=== PATIENT | female | born 1995 | race Caucasian/White ===

== ENCOUNTER 2017-05-29 18:23 | Emergency (ER) | payer BC ==
--- NOTE | 2017-05-29 18:43 | UC ---
Complaint Female HPI - HPI Summary HPI Summary: 22 YEAR OLD FEMALE PRESENTS WITH FREQUENT URINATION AND LEFT CVA TENDERNESS. - History Of Current Complaint Stated Complaint: POSSIBLE UTI Time Seen by Provider: 05/29/17 18:42 Hx Obtained From: Patient Hx Last Menstrual Period: 04/16/16 ?: Yes Onset/Duration: Gradual Onset Timing: Constant Severity Initially: Moderate Severity Currently: Moderate Pain Scale Used: 0-10 Numeric - 6 - Allergies/Home Medications Allergies/Adverse Reactions: Allergies Allergy/AdvReac Type Severity Reaction Status Date / Time No Known Allergies Allergy Verified 05/29/17 18:48 PMH/Surg Hx/FS Hx/Imm Hx Previously Healthy: Yes - Surgical History Surgical History: Yes Surgery Procedure, Year, and Place: tonsilectomy - Family History Known Family History: Positive: Other - no history of urinary problems - Social History Alcohol Use: Rare Substance Use Type: None Smoking Status (MU): Current Some Day Smoker Type: Cigarettes Amount Used/How Often: only when drinks alcohol - Immunization History Vaccination Up to Date: Yes Review of Systems Constitutional: Negative Skin: Negative Eyes: Negative ENT: Negative Respiratory: Negative Cardiovascular: Negative Gastrointestinal: Negative Genitourinary: Dysuria, Frequency, Urgency Motor: Negative Neurovascular: Negative Musculoskeletal: Negative Neurological: Negative Psychological: Negative All Other Systems Reviewed And Are Negative: Yes Physical Exam Triage Information Reviewed: Yes Eye Exam: Normal ENT Exam: Normal Dental Exam: Normal Neck exam: Normal Neck: Positive: 1 Respiratory Exam: Normal Cardiovascular Exam: Normal Abdominal Exam: Normal Musculoskeletal Exam: Normal Neurological Exam: Normal Psychological Exam: Normal Skin Exam: Normal Complaint Female Dx - Differential Dx/Diagnosis Provider Diagnoses: LEFT CVA TENDERNESS. URINARY FREQUENCY Discharge - Discharge Plan Condition: Stable Disposition: HOME Prescriptions: Sulfamethox/Trimethoprim DS* [Bactrim DS 800/160 TAB*] 1 tab PO BID #14 tab Patient Education Materials: Urinary Tract Infection in Women (ED) Referrals: Amaris White MD [Primary Care Provider] -
[2017-05-29 18:53] VITALS: BP 120/67
[2017-06-04 14:47] LABS: Mycoplasma hominis Result Negative; Mycoplasma hominis Source URINE; Ureaplasma Source URINE; Ureaplasma parvum PCR Positive; Ureaplasma urealyticum PCR Negative
--- NOTE | 2017-06-05 07:06 | UC ---
Progress - Progress Note Progress Note: Please notify pt of (+) ureaplasm stop septra DS start DOXY BID x 7days take with food avoid sun exposure
== END 2017-05-29 19:27 | disposition home or self-care (01) ==
LOC: UCCORT 18:23
DX: R35.0 Frequency of micturition (principal); R10.9 Unspecified abdominal pain; Z32.02 Encounter for pregnancy test, result negative; F17.210 Nicotine dependence, cigarettes, uncomplicated
CPT/HCPCS: 81003; 84702; 87086; 87798; 99212; G0463

== ENCOUNTER 2018-06-03 10:10 | Emergency (ER) | payer BC ==
[2018-06-03 10:44] VITALS: BP 146/72
--- NOTE | 2018-06-03 10:53 | UC ---
Skin Complaint HPI - HPI Summary HPI Summary: This patient is a 23 year old F presenting [place] [facility] [place] a chief complaint of a bug bite on his left knee since 05/29/2018. The patient rates the pain 7/10 in severity. Patient reports shooting pain when ambulating. She says that she had a similar type of bite one month ago that had to be drained. Patient is about to start Macrobid for a kidney issue. - History of Current Complaint Chief Complaint: UCSkin Time Seen by Provider: 06/03/18 10:41 Stated Complaint: L KNEE PAIN Hx Obtained From: Patient Hx Last Menstrual Period: 04/28/18 Onset/Duration: Sudden Onset, Lasting Days - Since 05/29/2018, Still Present Skin Exposure Onset/Duration: Days Ago Onset Severity: Moderate Current Severity: Moderate Pain Intensity: 7 Pain Scale Used: 0-10 Numeric Location: Discrete - Left knee Aggravating Factor(s): Other - Shooting pain when ambulating - Allergy/Home Medications Allergies/Adverse Reactions: Allergies Allergy/AdvReac Type Severity Reaction Status Date / Time No Known Allergies Allergy Verified 06/03/18 10:45 Review of Systems Skin: Other - Bug bite on left knee Musculoskeletal: Other: - Shooting pain in left leg when ambulating All Other Systems Reviewed And Are Negative: Yes PMH/Surg Hx/FS Hx/Imm Hx Previously Healthy: No - Mononucleosis Endocrine History: Diabetes - Denies - Surgical History Surgical History: Yes Surgery Procedure, Year, and Place: tonsilectomy - Family History Known Family History: Positive: Hypertension, Diabetes, Other - no history of urinary problems, cancer - Social History Occupation: Employed Full-time Alcohol Use: Rare Substance Use Type: None Smoking Status (MU): Never Smoked Tobacco Type: Cigarettes Amount Used/How Often: only when drinks alcohol - Immunization History Vaccination Up to Date: Yes Physical Exam - Summary Physical Exam Summary: VITAL SIGNS: Reviewed. GENERAL: Patient is a well-developed and nourished FEMALE who is lying comfortable in the stretcher. Patient is not in any acute respiratory distress. HEAD AND FACE: Normocephalic EYES: PERRLA, EOMI x 2. EARS: Hearing grossly intact. MOUTH: Oropharynx within normal limits. NECK: Supple, trachea is midline, no adenopathy, no JVD, no carotid bruit. CHEST: Symmetric, no tenderness at palpation LUNGS: Clear to auscultation bilaterally. No wheezing or crackles. CVS: Regular rate and rhythm, S1 and S2 present, no murmurs or gallops appreciated. ABDOMEN: Soft, non-tender. Bowel sounds are normal. No abdominal abnormal pulsations. EXTREMITIES: Full ROM in all major joints, no edema, no cyanosis or clubbing. NEURO: Alert and oriented x 3. No acute neurological deficits. Speech is normal and follows commands. SKIN: Erythematous patch with induration of the skin in the medial aspect of the left knee Triage Information Reviewed: Yes Vital Signs: Initial Vital Signs Temp 97.7 F 06/03/18 10:42 Pulse 85 06/03/18 10:42 Resp 16 06/03/18 10:42 BP 146/72 06/03/18 10:42 Pulse Ox 100 06/03/18 10:42 Vital Signs Reviewed: Yes Course/Dx - Course Course Of Treatment: Patient is a 23-year-old female who presents to the urgent care with a chief complaint of having left knee redness and swelling. He seems that the patient is having cellulitis after insect bite. There is no abscess formation at this time. She will be given Bactrim. She is discharged home with f/u of PCP - Diagnoses Provider Diagnoses: Cellulitis Discharge - Sign-Out/Discharge Documenting (check all that apply): Patient Departure - D/C All imaging exams completed and their final reports reviewed: No Studies - Discharge Plan Condition: Stable Disposition: HOME Prescriptions: Sulfamethox/Trimethoprim DS* [Bactrim DS 800/160 TAB*] 1 tab PO BID #20 tab Patient Education Materials: Cellulitis (ED) Forms: *Work Release Referrals: Lucie Domingo PA [Primary Care Provider] - Additional Instructions: Take medications as instructed and adhere to plan Take Acetaminophen or ibuprofen for pain or fever Increase your fluid intake Return to the or go to the emergency department if symptoms worsen Follow-up with primary care physician in next 2-3 days - Billing Disposition and Condition Condition: STABLE Disposition: Home - Attestation Statements Document Initiated by Scribe: Yes Documenting Scribe: Hernan Cooper Provider For Whom Scribe is Documenting (Include Credential): Jai Hamilton MD Scribe Attestation: Hernan Mcocrmick, scribed for Jai Hamilton MD on 06/04/18 at 2140. Scribe Documentation Reviewed: Yes Provider Attestation: The documentation as recorded by the scribe, Hernan Cooper accurately reflects the service I personally performed and the decisions made by me, Jai Hamilton MD
== END 2018-06-03 11:01 | disposition home or self-care (01) ==
LOC: UCEAST 10:10
DX: L03.116 Cellulitis of left lower limb (principal)
CPT/HCPCS: 99212; G0463

== ENCOUNTER 2019-03-03 10:28 | Emergency (ER) | payer BC, OTHER ==
[2019-03-03 12:07] VITALS: BP 116/75
--- NOTE | 2019-03-03 12:51 | UC ---
Throat Pain/Nasal Jarad HPI - HPI Summary HPI Summary: 3 day history of malaise, low grade fever, progressive sore throat, decreased appetite. Has vomited x 3, not uncommone when she is unwell. Coughing, not short of breath and no chest pain. - History of Current Complaint Chief Complaint: UCGeneralIllness Stated Complaint: ST,COUGH,VOMITING,RUNNY NOSE Time Seen by Provider: 03/03/19 12:42 Hx Obtained From: Patient Hx Last Menstrual Period: 03/02/19 Onset/Duration: Gradual Onset, Lasting Days - 4-5, gradually worsening. Severity: Moderate Pain Intensity: 0 Cough: Nonproductive Associated Signs & Symptoms: Positive: Dysphagia, Nasal Discharge, Fever, Vomiting - Epiglottits Risk Factors Epiglottis Risk Factors: Negative - Allergies/Home Medications Allergies/Adverse Reactions: Allergies Allergy/AdvReac Type Severity Reaction Status Date / Time No Known Allergies Allergy Verified 03/03/19 12:02 Home Medications: Home Medications Control Pill 1 tab PO DAILY 03/03/19 [History Confirmed 03/03/19] Ondansetron TAB* [Zofran 4 MG Tab*] 4 mg PO Q6H PRN 03/03/19 [History Confirmed 03/03/19] PMH/Surg Hx/FS Hx/Imm Hx Previously Healthy: Yes - hx of mono in the past - Surgical History Surgical History: Yes Surgery Procedure, Year, and Place: tonsilectomy - Family History Known Family History: Positive: Hypertension, Diabetes - father, Other - no history of urinary problems, cancer - Social History Occupation: Employed Full-time Lives: Alone Alcohol Use: Rare Substance Use Type: None Smoking Status (MU): Never Smoked Tobacco Type: Cigarettes Amount Used/How Often: only when drinks alcohol - Immunization History Vaccination Up to Date: Yes Review of Systems All Other Systems Reviewed And Are Negative: Yes Constitutional: Positive: Fever, Chills, Fatigue Skin: Positive: Negative Eyes: Positive: Negative ENT: Positive: Sore Throat, Nasal Discharge Respiratory: Positive: Cough. Negative: Shortness Of Breath Cardiovascular: Positive: Negative. Negative: Chest Pain Gastrointestinal: Positive: Vomiting, Nausea. Negative: Abdominal Pain, Diarrhea Genitourinary: Positive: Negative Motor: Positive: Negative Neurovascular: Positive: Negative Musculoskeletal: Positive: Negative Neurological: Negative: Headache Psychological: Positive: Negative Is Patient Immunocompromised?: No Physical Exam Triage Information Reviewed: Yes Appearance: No Pain Distress, Ill-Appearing - looks mildly unwell Vital Signs: Initial Vital Signs Temp 99.1 F 03/03/19 12:03 Pulse 79 03/03/19 12:03 Resp 17 03/03/19 12:03 BP 116/75 03/03/19 12:03 Pulse Ox 100 03/03/19 12:03 Eyes: Positive: Conjunctiva Clear ENT: Positive: Pharyngeal erythema - and drainage ++, TMs normal, Other - past tonsillectomy Dental Exam: Normal Neck: Positive: Supple, Nontender, No Lymphadenopathy Respiratory: Positive: Lungs clear, Normal breath sounds Cardiovascular: Positive: RRR, No Murmur Musculoskeletal Exam: Normal Neurological Exam: Normal Neurological: Positive: Alert Psychological Exam: Normal Skin Exam: Normal Diagnostics - Laboratory Lab Results: rapid strep negative. Throat Pain/Nasal Course/Dx - Course Course Of Treatment: symptomatic treatment; rest at home, follow up with Jorge Domingo as needed. - Differential Dx/Diagnosis Differential Diagnosis/HQI/PQRI: Mononucleosis, Pharyngitis, Sinusitis, URI Provider Diagnosis: Pharyngitis Discharge - Sign-Out/Discharge Documenting (check all that apply): Patient Departure All imaging exams completed and their final reports reviewed: No Studies - Discharge Plan Condition: Stable Disposition: HOME Patient Education Materials: Pharyngitis (ED) Forms: *Work Release Referrals: Lucie Domingo PA [Primary Care Provider] - Additional Instructions: Continue symptomatic treatment of infection, ensuring rest, fluids, use of ibuprofen as needed for relief of pain. - Billing Disposition and Condition Condition: STABLE Disposition: Home
== END 2019-03-03 13:14 | disposition home or self-care (01) ==
LOC: UCCORT 10:28
DX: J02.9 Acute pharyngitis, unspecified (principal)
CPT/HCPCS: 87651; 99211; G0463

== ENCOUNTER 2019-08-10 17:25 | Emergency (ER) | payer BC ==
--- OUTSIDE RECORDS SUMMARY | 2019-08-10 19:20 | XMS REPORT | Continuity of Care Document ---
:1995 External Reference #:[id number] Author Name Moo Hull (transmitted by agent of provider Nohelia Mcgee) Address [address] [place] [address] Care Team Providers Name Role Phone Richard Claros MD - Family Medicine Care Team Information Typewriter Operator Automatic [phone] Problems Description No Information Available Social History Type Date Description Comments Sex Unknown Tobacco Use Start: Unknown Never Smoked Cigarettes Smoking Status Reviewed: 07/29/19 Never Smoked Cigarettes ETOH Use Rarely consumes alcohol Tobacco Use Start: Unknown Patient has never smoked Exercise Type/Frequency Exercises sporadically Allergies, Adverse Reactions, Alerts Description No Known Drug Allergies Medications Active Medications SIG Qnty Indications Ordering Provider Date Multivitamin Adult 1 by mouth every Unknown Tablets day History Medications No Active Medications Unknown 07/28/2019 - 07/29/2019 Immunizations Description No Information Available Vital Signs Date Vital Result Comment 07/29/2019 2:54pm Height 60.75 inches 5'0.75" Weight 149.12 lb Heart Rate 83 /min BP Systolic 128 mmHg BP Diastolic 75 mmHg O2 % BldC Oximetry 99 % BMI (Body Mass Index) 28.4 kg/m2 Last Menstrual Period [id number] Results Test Acquired Date Facility Test Result H/L Range Note Laboratory test 07/29/2019 [facility] Test negative finding Urine Procedures Description No Information Available Medical Devices Description No Information Available Encounters Description No Information Available Assessments Date Code Description Provider 07/29/2019 E28.2 Polycystic ovarian syndrome Moo Hull 07/29/2019 N94.6 Dysmenorrhea, unspecified Moo Hull 07/29/2019 E06.9 Thyroiditis, unspecified Moo Hull Plan of Treatment 07/29/2019 - BERNARDO HullCdeE28.2 Polycystic ovarian syndromeNew Labs: Test Urine, Ordered: 07/29/19N94.6 Dysmenorrhea, wqgivfzldzzE78.9 Thyroiditis, unspecified Functional Status Description No Information Available Mental Status Description No Information Available Referrals Description No Information Available
--- OUTSIDE RECORDS SUMMARY | 2019-08-10 19:20 | XMS REPORT | Continuity of Care Document ---
:1995 External Reference #:[id number] Author Name Umair Cook MD (transmitted by agent of provider Mary Jo Marvin) Address [address] [place] [id number] Care Team Providers Name Role Phone Oswaldo Domingo - Internal Care Team Information Patient Svcs Mgr [phone] Medicine Problems Description No Information Available Social History Type Date Description Comments Sex Unknown Tobacco Use Start: Unknown Patient has never smoked Allergies, Adverse Reactions, Alerts Description No Known Drug Allergies Medications Description No Active Medications Immunizations Description No Information Available Vital Signs Date Vital Result Comment 07/13/2019 3:41pm BP Systolic 183 mmHg BP Diastolic 101 mmHg Height 61.50 inches 5'1.50" Weight 149.00 lb BMI (Body Mass Index) 27.7 kg/m2 Heart Rate 94 /min O2 % BldC Oximetry 98 % Results Description No Information Available Procedures Description No Information Available Medical Devices Description No Information Available Encounters Description No Information Available Assessments Description No Information Available Plan of Treatment No Information Available Functional Status Description No Information Available Mental Status Description No Information Available Referrals Description No Information Available
--- OUTSIDE RECORDS SUMMARY | 2019-08-10 19:20 | XMS REPORT | Continuity of Care Document ---
:1995 External Reference #:[id number] Author Name Umair Cook MD Address [address] [place] [address] Care Team Providers Name Role Phone Oswaldo Domingo - Internal Care Team Information Grounds Supervisor [phone] Medicine Richard Claros MD - Family Care Team Information Grounds Supervisor [phone] Medicine Problems Active Problems Provider Date Allergy to other foods Umair Cook MD Onset: 07/13/2019 Allergic urticaria Umair Cook MD Onset: 07/13/2019 Social History Type Date Description Comments Sex Unknown Tobacco Use Start: Unknown Patient has never smoked Smoking Status Reviewed: 07/13/19 Patient has never smoked Allergies, Adverse Reactions, Alerts Description No Known Drug Allergies Medications Active Medications SIG Qnty Indications Ordering Provider Date Clarinex one tablet every 30tabs L50.0 Ricardoopher A. 07/13/2019 5mg Tablets in the morning MD Joey Xyzal 1 tab by mouth 30tabs L50.0 Ricardoopher A. 07/13/2019 5mg Tablets every evening MD Joey Epinephrine as directed 1units L50.0 Ricardoopher A. 07/13/2019 MD Joey 0.3mg/0.3ML Solution Auto-Inject History Medications No Active Medications Unknown 07/13/2019 - 07/13/2019 Immunizations Description No Information Available Vital Signs Date Vital Result Comment 07/13/2019 3:41pm BP Systolic 183 mmHg BP Diastolic 101 mmHg Height 61.50 inches 5'1.50" Weight 149.00 lb BMI (Body Mass Index) 27.7 kg/m2 Heart Rate 94 /min O2 % BldC Oximetry 98 % Results Test Date Facility Test Result H/L Range Note Laboratory test 07/13/2019 [facility] <pending> finding Order Procedures Description No Information Available Medical Devices Description No Information Available Encounters Description No Information Available Assessments Date Code Description Provider 07/13/2019 L50.0 Allergic urticaria Umair Cook MD 07/13/2019 Z91.018 Allergy to other foods Umair Cook MD Plan of Treatment 07/13/2019 - Umair Cook MDL50.0 Allergic urticariaNew Medication: Clarinex 5 mg - one tablet every in the morningXyzal 5 mg - 1 tab by mouth every eveningEpinephrine 0.3 mg/0.3ML - as fxarkqnjF88.018 Allergy to other foods Functional Status Description No Information Available Mental Status Description No Information Available Referrals Description No Information Available
[2019-08-10 19:24] VITALS: BP 122/62
--- NOTE | 2019-08-10 22:31 | UC ---
Respiratory Complaint HPI - HPI Summary HPI Summary: SEVERAL DAYS OF COUGH, CONGESTION SORE THROAT. NO FEVER, NAUSEA/VOMITING. - History of Current Complaint Chief Complaint: UCRespiratory Stated Complaint: COUGH,ST Time Seen by Provider: 08/10/19 19:43 Hx Obtained From: Patient Hx Last Menstrual Period: end of 06/2019 Onset/Duration: Gradual Onset, Lasting Days, Still Present Timing: Constant Severity Initially: Moderate Severity Currently: Moderate Pain Intensity: 0 Pain Scale Used: 0-10 Numeric Character: Cough: Nonproductive Aggravating Factors: Nothing Alleviating Factors: Nothing Associated Signs And Symptoms: Positive: URI, Nasal Congestion. Negative: Fever , Chills - Allergies/Home Medications Allergies/Adverse Reactions: Allergies Allergy/AdvReac Type Severity Reaction Status Date / Time No Known Allergies Allergy Verified 08/10/19 19:22 Home Medications: Home Medications NK [No Home Medications Reported] 08/10/19 [History Confirmed 08/10/19] PMH/Surg Hx/FS Hx/Imm Hx Previously Healthy: Yes - Surgical History Surgical History: Yes Surgery Procedure, Year, and Place: tonsilectomy - Family History Known Family History: Positive: Hypertension, Diabetes - father, Other - no history of urinary problems, cancer - Social History Alcohol Use: Rare Substance Use Type: None Smoking Status (MU): Never Smoked Tobacco Type: Cigarettes Amount Used/How Often: only when drinks alcohol - Immunization History Vaccination Up to Date: Yes Review of Systems All Other Systems Reviewed And Are Negative: Yes Constitutional: Positive: Negative ENT: Positive: Sore Throat, Nasal Discharge Respiratory: Positive: Cough Cardiovascular: Positive: Negative Gastrointestinal: Positive: Negative Physical Exam Triage Information Reviewed: Yes Appearance: Well-Appearing, No Pain Distress, Well-Nourished Vital Signs: Initial Vital Signs Temp 98.7 F 08/10/19 19:21 Pulse 96 08/10/19 19:21 Resp 14 08/10/19 19:21 BP 122/62 08/10/19 19:21 Pulse Ox 100 08/10/19 19:21 Vital Signs Reviewed: Yes Eyes: Positive: Conjunctiva Clear ENT: Positive: Hearing grossly normal, Pharynx normal, TMs normal Neck: Positive: Supple, Nontender, No Lymphadenopathy Respiratory Exam: Normal Cardiovascular Exam: Normal Abdomen Description: Positive: Soft Musculoskeletal: Positive: No Edema Neurological: Positive: Alert Psychological: Positive: Age Appropriate Behavior Skin: Negative: Rashes Respiratory Course/Dx - Differential Dx/Diagnosis Provider Diagnosis: Upper respiratory infection Discharge ED - Sign-Out/Discharge Documenting (check all that apply): Patient Departure All imaging exams completed and their final reports reviewed: No Studies - Discharge Plan Condition: Stable Disposition: HOME Patient Education Materials: Upper Respiratory Infection (ED) Referrals: Richard Claros MD [Primary Care Provider] - If Needed Additional Instructions: YOUR SYMPTOMS ARE LIKELY VIRALLY MEDIATED AND SHOULD RESOLVE ON THEIR OWN WITH TIME. NO INDICATION FOR ANTIBIOTICS AT PRESENT. REST, HYDRATE, OTC MEDS NEEDED. SEEK FOLLOW-UP IF YOU ARE NOT IMPROVING OVER THE NEXT 1-2 WEEKS. USE OTC AFRIN FOR NASAL CONGESTION. 2 SPRAYS IN EACH NOSTRIL TWICE DAILY NEEDED. DO NOT USE FOR MORE THAN 3-4 DAYS IN A ROW TO PREVENT DEVELOPING REBOUND CONGESTION. - Billing Disposition and Condition Condition: STABLE Disposition: Home
== END 2019-08-10 19:55 | disposition home or self-care (01) ==
LOC: UCCORT 17:25
DX: J06.9 Acute upper respiratory infection, unspecified (principal)
CPT/HCPCS: 99211; G0463

== ENCOUNTER 2019-09-28 19:30 | Emergency (ER) | payer BC, MEDICAID ==
--- OUTSIDE RECORDS SUMMARY | 2019-09-28 19:49 | XMS REPORT | Continuity of Care Document ---
:1995 External Reference #:[id number] Author Name Amy Rivera PA-C Address [address] [place] [address] Care Team Providers Name Role Phone Richard Claros MD Care Team Information Carton Repairer [phone] Problems Active Problems Provider Date Diarrhea Amy Rivera PA-C Onset: 08/09/2019 Constipation Amy Rivera PA-C Onset: 08/09/2019 Nausea Amy Rivera PA-C Onset: 08/09/2019 Generalized abdominal pain Amy Rivera PA-C Onset: 08/09/2019 Flatulence, eructation and gas pain Amy Rivera PA-C Onset: 2018 Social History Type Date Description Comments Sex Unknown Tobacco Use Start: Unknown Patient has never smoked Smoking Status Reviewed: 08/09/19 Patient has never smoked Allergies, Adverse Reactions, Alerts Description No Known Drug Allergies Medications Active Medications SIG Qnty Indications Ordering Provider Date Multivitamins Unknown Probiotic Unknown Immunizations Description No Information Available Vital Signs Date Vital Result Comment 08/09/2019 2:58pm Height 61 inches 5'1" Weight 142.00 lb BP Systolic 149 mmHg BP Diastolic 84 mmHg Heart Rate 80 /min BMI (Body Mass Index) 26.8 kg/m2 Results Test Acquired Date Facility Test Result H/L Range Note Laboratory test 07/29/2019 [facility] Ferritin <pending> finding Ser/Plas Mass/Vol(!) CBC W/Auto 07/29/2019 [facility] White Blood <pending> Differential(!) Count Ser Auto CNT RBC Red Blood Count <pending> Hemoglobin Blood <pending> Hematocrit <pending> MCV (Corpuscular Volume) <pending> MCH (Corpuscular Hemoglobin) <pending> MCHC (Corpuscular Hemog Conc) <pending> RDW <pending> Platelet Count Blood Auto CNT <pending> MPV <pending> Lymph% <pending> Pepin% <pending> Neutrophil % <pending> Absolute Lymphocytes <pending> Absolute Monocytes <pending> Absolute Neutrophils <pending> Procedures Description No Information Available Medical Devices Description No Information Available Encounters Description No Information Available Assessments Date Code Description Provider 08/09/2019 R14.0 Abdominal distension (gaseous) Amy Rivera PA-C 08/09/2019 R10.84 Generalized abdominal pain Amy Rivera PA-C 08/09/2019 R11.0 Nausea Amy Rivera PA-C 08/09/2019 K59.00 Constipation, unspecified Amy Rivera PA-C 08/09/2019 R19.7 Diarrhea, unspecified Amy Rivera PA-C Plan of Treatment Future Appointment(s):09/08/2019 3:15 pm - Amy Rivera [facility]-C at [facility]08/09/2019 - ASHLEY Shay CR14.0 Abdominal distension (gaseous)R10.84 Generalized abdominal painNew Labs: Stool Occult Blood Diag, Ordered: 08/09/19Fecal Lactoferrin (Stool WBC), Ordered : 08/09/19R11.0 AuxwzxJ26.00 Constipation, unspecifiedNew Labs:Stool Occult Blood Diag, Ordered: 08/09/19Fecal Lactoferrin (Stool WBC), Ordered: R19.7 Diarrhea, unspecifiedNew Labs:Stool Occult Blood Diag, Ordered: Fecal Lactoferrin (Stool WBC), Ordered: 08/09/19 Functional Status Description No Information Available Mental Status Description No Information Available Referrals Description No Information Available
[2019-09-28 20:00] VITALS: BP 130/63
[2019-09-28 20:21] LABS: Influenza A Molecular NEGATIVE (Negative); Influenza B Molecular NEGATIVE (Negative)
--- NOTE | 2019-09-28 20:22 | UC ---
Respiratory Complaint HPI - HPI Summary HPI Summary: 24 yo female with about a 7-8 week hx of nasal congestion/sinus pressure/post nasal drip and cough [place]TON upper dental sensitivity no CP or SOB occas vomits when she gags on phlegm states she is about 2 mos - History of Current Complaint Chief Complaint: UCRespiratory Stated Complaint: HEADACHE/COUGH/SORE THROAT/VOMITING Time Seen by Provider: 09/28/19 19:44 Hx Obtained From: Patient Hx Last Menstrual Period: 07/2019 Onset/Duration: Gradual Onset, Lasting Weeks Timing: Constant Severity Initially: Mild Severity Currently: Moderate Pain Intensity: 2 Pain Scale Used: 0-10 Numeric Character: Cough: Nonproductive Aggravating Factors: Nothing Alleviating Factors: Nothing Associated Signs And Symptoms: Positive: Nasal Congestion, Hoarseness, Sinus Discomfort - Allergies/Home Medications Allergies/Adverse Reactions: Allergies Allergy/AdvReac Type Severity Reaction Status Date / Time No Known Allergies Allergy Verified 09/28/19 19:52 Home Medications: Home Medications Acetaminophen [Tylenol Extra Strength] 500 mg PO 09/28/19 [History] Comb No.42/Folic Acid [Prena1 Chew 1.4 mg] 1 chw PO DAILY 09/28/19 [ History Confirmed 09/28/19] PMH/Surg Hx/FS Hx/Imm Hx Previously Healthy: Yes - Surgical History Surgical History: Yes Surgery Procedure, Year, and Place: tonsilectomy - Family History Known Family History: Positive: Hypertension, Diabetes - father, Other - no history of urinary problems, cancer - Social History Alcohol Use: Rare Substance Use Type: None Smoking Status (MU): Never Smoked Tobacco Type: Cigarettes Amount Used/How Often: only when drinks alcohol - Immunization History Vaccination Up to Date: Yes Review of Systems All Other Systems Reviewed And Are Negative: Yes Constitutional: Positive: Fatigue Skin: Positive: Rash Eyes: Positive: Negative ENT: Positive: Dental Pain, Nasal Discharge, Sinus Congestion, Sinus Pain/ Tenderness Respiratory: Positive: Cough Cardiovascular: Positive: Negative Gastrointestinal: Positive: Vomiting Genitourinary: Positive: Negative Motor: Positive: Negative Neurovascular: Positive: Negative Musculoskeletal: Positive: Negative Neurological: Positive: Negative Psychological: Positive: Negative Physical Exam Triage Information Reviewed: Yes Appearance: Well-Appearing, No Pain Distress, Well-Nourished Vital Signs: Initial Vital Signs Temp 98.6 F 01/01/20 19:55 Pulse 93 09/28/19 19:55 Resp 18 09/28/19 19:55 BP 130/63 09/28/19 19:55 Pulse Ox 100 09/28/19 19:55 Vital Signs Reviewed: Yes Eyes: Positive: Conjunctiva Clear ENT: Positive: Hearing grossly normal, Pharynx normal, Nasal congestion, Nasal drainage, TMs normal, Hoarse voice, Sinus tenderness, Uvula midline. Negative: Tonsillar swelling, Tonsillar exudate, Trismus, Muffled voice Neck: Positive: Supple, Nontender, No Lymphadenopathy Respiratory: Positive: Lungs clear, Normal breath sounds, No respiratory distress, No accessory muscle use Cardiovascular: Positive: RRR, No Murmur Musculoskeletal: Positive: ROM Intact, No Edema Neurological: Positive: Alert Psychological Exam: Normal Skin Exam: Normal Respiratory Course/Dx - Differential Dx/Diagnosis Provider Diagnosis: Acute sinusitis Discharge ED - Sign-Out/Discharge Documenting (check all that apply): Patient Departure All imaging exams completed and their final reports reviewed: No Studies - Discharge Plan Condition: Stable Disposition: HOME Prescriptions: Amoxicillin PO (*) [Amoxicillin 875 MG (*)] 875 mg PO BID #14 tab Fluticasone NASAL SPRAY 50MCG* [Flonase NASAL SPRAY 50MCG*] 2 spray BOTH NARES BID #1 btl Patient Education Materials: Sinusitis (ED) Referrals: Richard Claros MD [Primary Care Provider] - 7 Days (if not better) Additional Instructions: warm facial compresses saline nasal spray 2 sprays each nostril twice daily flonase nasal spray 2 sprays each nostril twice daily - Billing Disposition and Condition Condition: STABLE Disposition: Home
[2019-09-28] MEDS ORDERED: Amoxicillin PO (*) 500 MG CAP PO ONE (20:23)
== END 2019-09-28 20:31 | disposition home or self-care (01) ==
LOC: UCCORT 19:30
DX: O99.511 Diseases of the respiratory system complicating pregnancy, first trimester (principal); O99.89 Other specified diseases and conditions complicating pregnancy, childbirth and the puerperium; J01.90 Acute sinusitis, unspecified; R11.10 Vomiting, unspecified; R21 Rash and other nonspecific skin eruption; K08.89 Other specified disorders of teeth and supporting structures; Z3A.00 Weeks of gestation of pregnancy not specified
CPT/HCPCS: 87651; 99212; A9270-GY; G0463

== ENCOUNTER 2020-05-14 06:39 | Inpatient (IN) ==
[2020-05-14 07:29] LABS: Urine Appearance Turbid; Urine Bilirubin Negative (Negative); Urine Blood 2+ (Negative); Urine Color Yellow; Urine Glucose Negative (Negative); Urine Ketones Negative (Negative); Urine Nitrite Negative (Negative); Urine Protein 2+(100 mg/dL) (Negative); Urine Specific Gravity 1.008 (1.010-1.030); Urine Urobilinogen Negative (Negative)
[2020-05-14 07:31] LABS: Urine Bacteria 1+ (Absent); Urine Red Blood Cell 3+(>10/hpf) (Absent); Urine Squamous Epithelial Cell Present (Absent); Urine White Blood Cell 2+(11-20/hpf) (Absent)
[2020-05-14] MEDS ORDERED: Lactated Ringers 1000 ml BAG 1,000 ML IV ONE ×2 (08:56→11:53)
[2020-05-14] MEDS ORDERED: Lactated Ringers 1000 ml BAG 1,000 ML IV SCH ×2 (09:00→12:00)
[2020-05-14 09:56] LABS: Urine Benzodiazepine Screen None Detected (None Detect); Urine Cannabinoids Screen None Detected (None Detect); Urine Opiates Screen None Detected (None Detect)
[2020-05-14] MEDS ORDERED: OBEPIDURAL 250 ML EPIDURAL ONE (10:15)
[2020-05-14 10:16] LABS: ABS Basophils 0.1 10^3/ul (0-0.2); ABS Eosinophils 0.2 10^3/ul (0-0.6); ABS Lymphocytes 2.2 10^3/ul (1.0-4.8); ABS Monocytes 0.7 10^3/ul (0-0.8); ABS Neutrophils 7.8 10^3/ul (1.5-7.7); Eosinophil % 1.8 %; Hematocrit 43 % (35-47); Hemoglobin 14.7 g/dL (12.0-16.0); Lymphocyte % 20.3 %; Mean Corpuscular HGB Conc 34 g/dL (31-36); Mean Corpuscular Hemoglobin 31 pg (27-31); Mean Corpuscular Volume 89 fL (80-97); Mean Platelet Volume 9.2 fL (7.4-10.4); Nucleated Red Blood Cells % 0.1; Platelet Count 280 10^3/uL (150-450); Red Cell Distribution Width 14 % (10-15)
[2020-05-14 10:24] LABS: INR 0.97 (0.82-1.09)
[2020-05-14 10:32] LABS: Albumin 3.6 g/dL (3.2-5.2); Albumin/Globulin Ratio 1.2 (1-3); BUN/Creatinine Ratio 7.8 (8-20); EGFR African American 137.9 (>60); Potassium 3.7 mmol/L (3.5-5.0); Total Bilirubin 0.3 mg/dL (0.2-1.0); Total Protein 6.6 g/dL (6.4-8.9)
[2020-05-14] MEDS ORDERED: Ondansetron 4 mg VIAL 2 MG/ML 2 ml VIAL IV PRN (11:53)
[2020-05-14] MEDS ORDERED: Lactated Ringers 500 ml BAG 500 ML IV PRN (11:53)
[2020-05-14] MEDS ORDERED: EPHEDrine (Pressors) 50 MG/ML VIAL IV PUSH PRN ×2 (11:53)
[2020-05-14] MEDS ORDERED: Sodium Citrate/Citric Acid LIQ 15 ML UDC PO PRN (11:53)
[2020-05-14] MEDS ORDERED: Phenylephrine 40 mcg/mL 10mL (400mcg) SYRINGE IV PUSH PRN ×2 (11:53)
[2020-05-14] MEDS ORDERED: Oxytocin in LR 20 UNITS/1,000 ML BAG IVPB ONE (12:21)
[2020-05-14] MEDS ORDERED: LoraTADine 10 mg TAB (NF) PO ONE (17:58)
[2020-05-15] MEDS ORDERED: Bupivacaine 0.25% SDV PF 10 ML VIAL INJ ONE (01:10)
[2020-05-15] MEDS ORDERED: Lidocaine 0.5% SDV 50 ML VIAL ONE (01:10)
[2020-05-15] MEDS ORDERED: ceFOXitin 2 GM IVPREMIX 2 GM/50 ML BAG ONE (02:31)
[2020-05-15] MEDS ORDERED: Lidocaine 2% PF 10 ML AMP ONE (03:07)
[2020-05-15] MEDS ORDERED: Oxytocin 10 UNITS/ML 1 ML VIAL ONE (03:08)
[2020-05-15] MEDS ORDERED: Ondansetron 4 mg VIAL 2 MG/ML 2 ml VIAL ONE (03:08)
[2020-05-15] MEDS ORDERED: Midazolam 2 mg/2 ml VIAL 1 mg/ml 2 ml VIAL (2 mg) ONE (03:12)
[2020-05-15] MEDS ORDERED: Morphine PF AMP (0.5MG/ML) 5 MG/10 ML AMP ONE (03:14)
[2020-05-15] MEDS ORDERED: HYDROmorphone 1 MG/1 ML SYRINGE IV PRN (03:33)
[2020-05-15] MEDS ORDERED: Acetaminophen IV 1 GM/100ML 1,000 MG/100 ML VIAL IVPB ONE (03:33)
[2020-05-15] MEDS ORDERED: Naloxone 0.4 mg VIAL 0.4 mg/ml 1 ml VIAL IV PRN ×2 (03:33→03:35)
[2020-05-15] MEDS ORDERED: DiMENhydriNATE IV 50 mg/ml 1 ml VIAL IV PUSH PRN (03:33)
[2020-05-15] MEDS ORDERED: diPHENhydraMINE IV 50 MG/ML 1 ml VIAL (BENADRYL) IV PRN (03:35)
[2020-05-15] MEDS ORDERED: Propofol 10 MG/ML 20 ML BTL ONE (03:40)
[2020-05-15] MEDS ORDERED: Witch Hazel PAD JAR TOPICAL PRN (03:54)
[2020-05-15] MEDS ORDERED: Varicella Virus Vaccine Live 0.5 ML VIAL SUBCUT ONE (03:54)
[2020-05-15] MEDS ORDERED: Dibucaine 1% OINT 28.35 GM TUBE PR PRN (03:54)
[2020-05-15] MEDS ORDERED: Glycerin ADULT 2.4 gm SUPP PR PRN (03:54)
[2020-05-15] MEDS ORDERED: Oxytocin in LR 20 UNITS/1,000 ML BAG IVPB SCH (04:00)
[2020-05-15] MEDS: oxyCODONE/Acetamin 5/325 mg TAB PO PRN ×3 (07:57→18:12)
[2020-05-16] MEDS: OBEPIDURAL 250 ML EPIDURAL SCH ×2 (07:09→07:46)
[2020-05-16 10:10] LABS: ABS Basophils 0.1 10^3/ul (0-0.2); ABS Eosinophils 0.1 10^3/ul (0-0.6); ABS Lymphocytes 1.9 10^3/ul (1.0-4.8); ABS Monocytes 0.6 10^3/ul (0-0.8); ABS Neutrophils 12.8 10^3/ul (1.5-7.7); Eosinophil % 0.9 %; Hematocrit 32 % (35-47); Hemoglobin 11.1 g/dL (12.0-16.0); Lymphocyte % 12.4 %; Mean Corpuscular HGB Conc 34 g/dL (31-36); Mean Corpuscular Hemoglobin 31 pg (27-31); Mean Corpuscular Volume 90 fL (80-97); Mean Platelet Volume 8.8 fL (7.4-10.4); Platelet Count 252 10^3/uL (150-450); Red Blood Count 3.62 10^6 /uL (3.70-4.87); Red Cell Distribution Width 14 % (10-15); White Blood Count 15.6 10^3/uL (3.5-10.8)
[2020-05-17 08:37] VITALS: BP 118/64
== END 2020-05-17 14:10 | disposition home or self-care (01) | DRG 540 ==
LOC: MCHOBOUT 06:39 → MCHOB 07:34
PROVIDERS: ADMIT Midwife; ATTEND Obstetrics & Gynecology

== ENCOUNTER 2021-12-28 04:11 | Inpatient (IN) ==
[2021-12-28 04:58] LABS: ABS Eosinophils 0.2 10^3/ul (0-0.6); ABS Lymphocytes 2.8 10^3/ul (1.0-4.8); ABS Monocytes 0.8 10^3/ul (0-0.8); ABS Neutrophils 5.7 10^3/ul (1.5-7.7); Eosinophil % 1.9 %; Hematocrit 35 % (35-47); Hemoglobin 11.4 g/dL (12.0-16.0); Lymphocyte % 29.6 %; Mean Corpuscular HGB Conc 33 g/dL (31-36); Mean Corpuscular Hemoglobin 25 pg (27-31); Mean Corpuscular Volume 78 fL (80-97); Mean Platelet Volume 8.4 fL (7.4-10.4); Platelet Count 352 10^3/uL (150-450); Red Blood Count 4.48 10^6 /uL (3.70-4.87); Red Cell Distribution Width 15 % (10-15); White Blood Count 9.6 10^3/uL (3.5-10.8)
[2021-12-28] MEDS ORDERED: Buffered Lidocaine 1% SYRIN 1 ml INTRADERM ONE (05:16)
[2021-12-28] MEDS ORDERED: Penicillin G Potassium IV 5,000,000 UNITS in NS 0.9% 100 ml BAG 100 ML IVPB ONE (05:16)
[2021-12-28] MEDS ORDERED: Lactated Ringers 1000 ml BAG 1,000 ML IV ONE (05:16)
[2021-12-28] MEDS ORDERED: OBEPIDURAL (200 ML) 200 ML EPIDURAL ONE (05:17)
[2021-12-28] MEDS ORDERED: ceFAZolin 2 GM PREMIX 2 GM/50 ML BAG ONE (05:58)
[2021-12-28] MEDS ORDERED: ceFOXitin 2 GM IVPREMIX 2 GM/50 ML BAG ONE (05:59)
[2021-12-28] MEDS ORDERED: Penicillin G Potassium IV 3,000,000 UNITS in NS 0.9% 100 ml BAG 100 ML IVPB SCH (06:00)
[2021-12-28] MEDS ORDERED: Lactated Ringers 1000 ml BAG 1,000 ML IV SCH ×2 (06:00→09:00)
[2021-12-28] MEDS ORDERED: Ondansetron 4 mg VIAL 2 MG/ML 2 ml VIAL ONE ×2 (06:08→06:37)
[2021-12-28] MEDS ORDERED: fentaNYL 100 mcg/2 ml 50 MCG/ML VIAL ONE (06:09)
[2021-12-28] MEDS ORDERED: Phenylephrine 40 mcg/mL 10mL (400mcg) SYRINGE ONE ×3 (06:16→08:14)
[2021-12-28] MEDS ORDERED: Oxytocin 10 UNITS/ML 1 ML VIAL ONE (06:16)
[2021-12-28] MEDS ORDERED: Morphine PF AMP (0.5MG/ML) 5 MG/10 ML AMP ONE (06:21)
[2021-12-28] MEDS ORDERED: Lidocaine 2% PF 10 ML AMP ONE (06:26)
[2021-12-28] MEDS ORDERED: Naloxone 0.4 mg VIAL 0.4 mg/ml 1 ml VIAL IV PRN (06:32)
[2021-12-28] MEDS ORDERED: Ondansetron 4 mg VIAL 2 MG/ML 2 ml VIAL IV PRN (06:32)
[2021-12-28] MEDS ORDERED: diPHENhydraMINE IV 50 MG/ML 1 ml VIAL (BENADRYL) IV PRN (06:32)
[2021-12-28] MEDS ORDERED: Acetaminophen IV 1 GM/100ML 100 ML IV PRN (06:33)
[2021-12-28] MEDS ORDERED: EPHEDrine (Pressors) 50 MG/ML VIAL ONE ×2 (06:37→08:15)
[2021-12-28] MEDS ORDERED: Glycerin ADULT 2.4 gm SUPP PR PRN (08:06)
[2021-12-28] MEDS ORDERED: Witch Hazel PAD JAR TOPICAL PRN (08:06)
[2021-12-28] MEDS ORDERED: Dibucaine 1% OINT 28.35 GM TUBE PR PRN (08:06)
[2021-12-28 08:28] LABS: Urine Appearance Cloudy; Urine Bilirubin Negative (Negative); Urine Blood 3+ (Negative); Urine Color Yellow; Urine Glucose Negative (Negative); Urine Ketones 1+ (Negative); Urine Nitrite Negative (Negative); Urine Protein 2+(100 mg/dL) (Negative); Urine Specific Gravity 1.024 (1.002-1.030); Urine Urobilinogen Negative (Negative)
[2021-12-28 08:38] LABS: Urine Bacteria Absent (Absent); Urine Red Blood Cell 3+(>10/hpf) (Absent); Urine Squamous Epithelial Cell Present (Absent); Urine White Blood Cell Trace(0-5/hpf) (Absent)
[2021-12-28 08:41] LABS: Urine Benzodiazepine Screen None Detected (None Detect); Urine Cannabinoids Screen None Detected (None Detect); Urine Opiates Screen None Detected (None Detect)
[2021-12-28] MEDS ORDERED: Oxytocin in LR 20 UNITS/1,000 ML BAG IVPB SCH (09:00)
[2021-12-28] MEDS: Venlafaxine XR 75 mg PO SCH (21:44)
[2021-12-29 05:10] LABS: ABS Eosinophils 0.1 10^3/ul (0-0.6); ABS Monocytes 0.9 10^3/ul (0-0.8); ABS Neutrophils 9.2 10^3/ul (1.5-7.7); Eosinophil % 0.9 %; Hematocrit 24 % (35-47); Hemoglobin 7.9 g/dL (12.0-16.0); Lymphocyte % 16.2 %; Mean Corpuscular HGB Conc 32 g/dL (31-36); Mean Corpuscular Hemoglobin 25 pg (27-31); Mean Corpuscular Volume 77 fL (80-97); Mean Platelet Volume 7.7 fL (7.4-10.4); Platelet Count 280 10^3/uL (150-450); Red Blood Count 3.17 10^6 /uL (3.70-4.87); Red Cell Distribution Width 15 % (10-15); White Blood Count 12.2 10^3/uL (3.5-10.8)
[2021-12-29] MEDS ORDERED: Iron Sucrose 200 MG in NS 0.9% 100 ml BAG 100 ML IVPB ONE (12:34)
[2021-12-29] MEDS: Venlafaxine XR 75 mg PO SCH (23:17)
[2021-12-30] MEDS: Venlafaxine XR 75 mg PO SCH (23:05)
[2021-12-31] MEDS: Penicillin G Potassium IV 3,000,000 UNITS in NS 0.9% 100 ml BAG 100 ML IVPB SCH (07:06)
[2021-12-31 10:13] VITALS: BP 132/76
== END 2021-12-31 13:40 | disposition home or self-care (01) | DRG 540 ==
LOC: MCHOBOUT 04:11 → MCHOB 04:49
PROVIDERS: ADMIT Obstetrics & Gynecology; ATTEND Obstetrics & Gynecology